=== PATIENT | female | born 1955 | race Caucasian/White ===

== ENCOUNTER 2017-04-30 12:40 | Emergency (ER) | payer OTHER ==
[2017-04-30] MEDS ORDERED: HYDROcodone/APAP 5-325MG 1 EACH TAB PO STA ×2 (13:04→15:35)
--- NOTE | 2017-04-30 13:16 | ED ---
General Adult HPI - General Chief complaint: Extremity Injury, Lower Stated complaint: Left Ankle Injury Time Seen by Provider: 04/30/17 12:51 Source: patient, RN notes reviewed Mode of arrival: wheelchair Limitations: no limitations - History of Present Illness Initial comments: Patient 61-year-old female who presents emergency room today with chief complaint of a fall from a ladder that occurred just prior to arrival. She does admit that she lost her balance she was approximate 4 feet here. States she landed on the grass. She states she hurt her left ankle. She denies any other injuries or complaints. Denies any head injury or loss consciousness. Patient denies any recent fever, chills, shortness of breath, chest pain, back pain, abdominal pain, nausea or vomiting, numbness or tingling, dysuria or hematuria, constipation or diarrhea, headaches or visual changes, or any other complaints. - Related Data Home Medications Medication Instructions Recorded Confirmed Aspirin 81 mg PO HS 04/30/17 04/30/17 Atorvastatin [Lipitor] 80 mg PO HS 04/30/17 04/30/17 Fenofibrate [Lofibra] 54 mg PO DAILY 04/30/17 04/30/17 Levothyroxine Sodium [Synthroid] 88 mcg PO DAILY 04/30/17 04/30/17 Lisinopril [Zestril] 10 mg PO DAILY 04/30/17 04/30/17 Multivitamins, Thera [Multivitamin 1 tab PO DAILY 04/30/17 04/30/17 (formulary)] Previous Rx's Medication Instructions Recorded Hydrocodone/Acetaminophen [Castalia 1 each PO Q6HR PRN #20 tab 04/30/17 5-325] Allergies Allergy/AdvReac Type Severity Reaction Status Date / Time No Known Allergies Allergy Verified 04/30/17 14:13 Review of Systems ROS Statement: Those systems with pertinent positive or pertinent negative responses have been documented in the HPI. ROS Other: All systems not noted in ROS Statement are negative. Past Medical History Past Medical History: Hyperlipidemia, Hypertension, Thyroid Disorder History of Any Multi-Drug Resistant Organisms: None Reported Past Surgical History: Orthopedic Surgery Additional Past Surgical History / Comment(s): carotid endarectomy Past Psychological History: No Psychological Hx Reported Smoking Status: Never smoker Past Alcohol Use History: None Reported Past Drug Use History: None Reported General Exam - General Exam Comments Initial Comments: General: The patient is awake and alert, in no distress, and does not appear acutely ill. Neck: The neck is supple, there is no tenderness or JVD. Cardiovascular: There is a regular rate and rhythm. No murmur, rub or gallop is appreciated. Respiratory: Lungs are clear to auscultation, respirations are non-labored, breath sounds are equal. No wheezes, stridor, rales, or rhonchi. Musculoskeletal: patient has moderate swelling to the medial aspect of the left ankle. She shows limited range of motion at the left ankle due to pain. She is able to move her toes. Move her knee and for the most. Sensations are intact pulses equal bilaterally.no tenderness on palpation to the left knee. Mild tenderness down to left foot. Toes have tenderness minimal to the lateral malleolus is increased to the medial malleolus. Neurological: A&O x 3. CN II-XII intact, There are no obvious motor or sensory deficits. Coordination appears grossly intact. Speech is normal. Skin: Skin is warm and dry and no rashes or lesions are noted. Psychiatric: Normal mood and affect. Limitations: no limitations Course Vital Signs 04/30/17 12:45 Temperature 97.3 F L Pulse Rate 64 Respiratory 18 Rate Blood Pressure 149/92 O2 Sat by Pulse 100 Oximetry Medical Decision Making - Medical Decision Making Patient's x-ray was reviewed and does show fracture of the left ankle. Neurovascularly intact. Case was discussed with on-call physician assistant chief nursing officer James Camargo who has reviewed the x-rays recommends a sugar tong splint with a posterior short leg splint. Patient given prescription for pain medication and crutches and advised nonweightbearing until follow-up with orthopedics Wednesday morning. Advised that if there is any problems over the weekend to return to the emergency room. Disposition Clinical Impression: Fracture of ankle, bimalleolar, left, closed Disposition: HOME SELF-CARE Condition: Good Instructions: Ankle Fracture (ED) Additional Instructions: Please see splinted in place until follow-up appointment with orthopedics in the next 2 days. Please continue to ice elevate the affected area discussed. Please use crutches with nonweightbearing. Please return to emergency room for any other concerns. Prescriptions: Hydrocodone/Acetaminophen [Castalia 5-325] 1 each PO Q6HR PRN #20 tab PRN Reason: Pain Referrals: Simon Ulrich MD [Primary Care Provider] - 1-2 days Time of Disposition: 15:35
--- NOTE | 2017-04-30 13:29 | XR ---
EXAMINATION TYPE: XR ankle limited LT DATE OF EXAM: 04/30/2017 COMPARISON: NONE HISTORY: Pain TECHNIQUE: 2 views of the left ankle are submitted for evaluation. FINDINGS: Completely displaced fractures of the medial and lateral malleolar. Posterior malleolar fra cture is difficult to exclude. A disruption of the ankle mortise noted with medial distal tibial disp lacement of 9.3 mm. Soft tissue edema and 17. IMPRESSION: 1. Fractures of the distal tibia and fibula as discussed with disruption of the ankle mortise.
[2017-04-30 16:10] VITALS: BP 144/68; PULSE 62; RESP 16; TEMP 98.3
== END 2017-04-30 16:23 | disposition home or self-care (01) ==
LOC: EC 12:40
DX: S82.842A Displaced bimalleolar fracture of left lower leg, initial encounter for closed fracture (principal); E78.5 Hyperlipidemia, unspecified; I10 Essential (primary) hypertension; E07.9 Disorder of thyroid, unspecified; Z98.890 Other specified postprocedural states; Z79.82 Long term (current) use of aspirin; Z79.899 Other long term (current) drug therapy; W11.XXXA Fall on and from ladder, initial encounter
CPT/HCPCS: 29515; 99283

== ENCOUNTER → 2018-03-24 | Outpatient (CLI) | payer OTHER ==
--- NOTE | 2018-03-24 16:11 | BD ---
EXAMINATION TYPE: Axial Bone Density DATE OF EXAM: 03/24/2018 COMPARISON: NONE CLINICAL HISTORY: Postmenopausal female. Osteoporosis screening. Height: 67 Weight: 246.3 FRAX RISK QUESTIONS: Alcohol (3 or more units per day): no Family History (Parent hip fracture): no Glucocorticoids (More than 3mos): no (Ex: prednisone, prednisolone, methylprednisolone, dexamethasone, and hydrocortisone). History of Fracture in Adulthood: yes Secondary Osteoporosis: 1. Type 1 Diabetes: no 2. Hyperthyroidism: no 3. Menopause before 45: no 4. Malnutrition: no 5. Chronic liver disease: no RISK FACTORS HISTORY OF: Family History of Osteoporosis: no Active: yes Diet low in dairy products/other sources of calcium: no Postmenopausal woman: 2006 Lost more than 2 inches in height since high school: no Frequent falls: no MEDICATIONS: lisinopril, fenofibrate, crestor, aspirin, d3, vitamins, biotene Thyroid Medications: synthroid How Lon years Additional History: EXAM MEASUREMENTS: Bone mineral densitometry was performed using the [employer] System. Bone mineral density as measured about the Lumbar spine is: ----- L1-L4(G/cm2): 1.373 T Score Values are as follows: ----- L2: 1.1 ----- L3: 1.5 ----- L4: 2.0 ----- L1-L4: 1.6 Bone mineral density has: increased 0.9 % since study of: 11.15.2012 Bone mineral density about the R hip (g/cm2): 0.962 Bone mineral density about the L hip (g/cm2): 0.970 T Score values are as follows: -----R Neck: -0.5 -----L Neck: -0.5 -----R Total: 0.4 -----L Total: 0.6 Bone mineral density has: decreased -3.8 % since study of: 11.15.2012 IMPRESSION: Normal (Values between +1 and -1 indicate normal bone mass). Consider repeating this study in 5 year s or sooner if there is some new clinical indication. NOTE: T-SCORE=SD OF THE YOUNG ADULT MEAN.
== END | disposition home or self-care (01) ==
LOC: RADBDWWP 14:16
PROVIDERS: ATTEND Specialist
DX: Z13.820 Encounter for screening for osteoporosis (principal)
CPT/HCPCS: 77080

== ENCOUNTER → 2018-05-18 | Outpatient (CLI) | payer OTHER ==
--- NOTE | 2018-05-19 12:48 | MM ---
Reason for exam: screening (asymptomatic). Last mammogram was performed 1 year ago. History: Patient is postmenopausal and has history of other cancer at age 45. Physical Findings: A clinical breast exam by your physician is recommended on an annual basis and results should be correlated with mammographic findings. MG 3D Screening Mammo W/Cad Bilateral CC and MLO view(s) were taken. Prior study comparison: May 17, 2017, bilateral MG screening mammo w CAD. April 15, 2016, bilateral MG 3d screening mammo w/cad. There are scattered fibroglandular densities. There is no discrete abnormality. No significant changes when compared with prior studies. ASSESSMENT: Negative, BI-RAD 1 RECOMMENDATION: Routine screening mammogram of both breasts in 1 year.
== END | disposition home or self-care (01) ==
LOC: RADMAMWWP 13:14
PROVIDERS: ATTEND Family Medicine
DX: Z12.31 Encounter for screening mammogram for malignant neoplasm of breast (principal)
CPT/HCPCS: 77063; 77067

== ENCOUNTER → 2018-09-21 | Outpatient (CLI) | payer OTHER ==
--- NOTE | 2018-09-21 17:01 | MR ---
EXAMINATION TYPE: MR iac wo/w con DATE OF EXAM: 09/21/2018 COMPARISON: NONE HISTORY: 63-year-old female Vertigo / Acoustic nerve disorder TECHNIQUE: Multiplanar, multisequence images of the brain and brainstem were acquired before and aft er administration of 11 mL IV Gadavist. Diffusion weighted imaging was performed. Additional coned- down sequences through the internal auditory canals and posterior cranial fossa before and after IV c ontrast administration. FINDINGS: Diffusion weighted images demonstrate no evidence of an acute ischemic lesion in the brain. T2/FLAIR weighted sequences show mild to moderate scattered burden of bright white matter change with in the subcortical and deep white matter regions. Midline structures demonstrate partially empty sella but otherwise normal morphology. The craniocerv ical junction is normal. There is mild cerebral atrophy. The ventricles are of normal caliber. There is no evidence of an acute intracranial hemorrhage, infarct, mass, mass-effect or an extra-axia l fluid collection. There is no cerebellopontine angle mass. The internal auditory canals are symmetric. Brainstem and skull base abnormalities are not seen. Post contrast images demonstrate no evidence of pathologic enhancement in the posterior cranial deysi a or the internal auditory canals. There is no abnormal enhancement of the labyrinths. There is fluid within the right mastoid air cells. Mild mucosal thickening along the floors of the ma xillary sinuses. Globes appear intact. IMPRESSION: 1. Mild cerebral atrophy and mild to moderate scattered burden of T2 bright white matter change likel y representing chronic small vessel ischemic disease. 2. No acute intracranial abnormality seen. 3. Fluid in the right mastoid air cells may reflect mastoiditis. Otherwise, no additional specific ab normality on acoustic MRI.
== END | disposition home or self-care (01) ==
LOC: RADMRIMAIN 09:07
PROVIDERS: ATTEND Otolaryngology
DX: G31.9 Degenerative disease of nervous system, unspecified (principal); R90.89 Other abnormal findings on diagnostic imaging of central nervous system; H93.3X3 Disorders of bilateral acoustic nerves
CPT/HCPCS: 70553; A9585

== ENCOUNTER → 2019-06-05 | Outpatient (CLI) | payer OTHER ==
--- NOTE | 2019-06-05 14:03 | CT ---
EXAMINATION TYPE: CT chest wo con DATE OF EXAM: 06/05/2019 COMPARISON: None HISTORY: 64-year-old female Solitary lung nodule. Abnormal chest x-ray. TECHNIQUE: Contiguous axial scanning of the chest without IV contrast. Coronal and sagittal reconstru ctions performed. CT DLP: 701 mGycm Automated exposure control for dose reduction was used. FINDINGS: The patient's abnormal chest x-ray is not available for review. Heart normal size without pericardial effusion. Three-vessel coronary artery calcifications are prese nt. Mild ectasia ascending aorta 3.7 cm within the chart vessel branching anatomy. Scattered nonenlarged mediastinal lymph nodes. No thoracic lymph adenopathy by CT size criteria. 4 mm posterior left upper lung pulmonary nodule, axial image 20. Minimal groundglass nodularity right upper lobe, axial image 20. 4 mm subpleural pulmonary nodule peripheral left base, axial image 52. Some septal lines and interstitial thickening within the lower lungs. Additional strandy scarring or atelectasis right midlung. No consolidation or pleural effusion. Tiny hiatal hernia. Hilar splenule. Bones: Moderate degenerative disc disease lower thoracic spine. IMPRESSION: 1. MILD INTERSTITIAL FIBROSIS IN THE LOWER LUNGS. 2. COUPLE 4 MM PULMONARY NODULES. 6-12 MONTH FOLLOW-UP EXAM RECOMMENDED TO REASSESS. 3. TINY, NONSPECIFIC INFECTIOUS/INFLAMMATORY GROUNDGLASS FOCUS IN THE RIGHT UPPER LOBE.
== END | disposition home or self-care (01) ==
LOC: RADCTMAIN 13:29
PROVIDERS: ATTEND Family Medicine
DX: J84.10 Pulmonary fibrosis, unspecified (principal); R91.8 Other nonspecific abnormal finding of lung field
CPT/HCPCS: 71250

== ENCOUNTER → 2019-07-31 | Outpatient (CLI) | payer OTHER ==
--- NOTE | 2019-07-31 11:51 | MM ---
Reason for exam: screening (asymptomatic). Last mammogram was performed 1 year and 2 months ago. History: Patient is postmenopausal and has history of other cancer at age 45. Physical Findings: A clinical breast exam by your physician is recommended on an annual basis and results should be correlated with mammographic findings. MG 3D Screening Mammo W/Cad Bilateral CC and MLO view(s) were taken. Prior study comparison: May 18, 2018, bilateral MG 3d screening mammo w/cad. May 17, 2017, bilateral MG screening mammo w CAD. There are scattered fibroglandular densities. No suspicious abnormality. No significant changes when compared with prior studies. ASSESSMENT: Negative, BI-RAD 1 RECOMMENDATION: Routine screening mammogram of both breasts in 1 year.
== END | disposition home or self-care (01) ==
LOC: RADMAMWWP 10:35
PROVIDERS: ATTEND Specialist
DX: Z12.31 Encounter for screening mammogram for malignant neoplasm of breast (principal)
CPT/HCPCS: 77063; 77067

== ENCOUNTER → 2019-10-26 | Outpatient (CLI) | payer OTHER ==
--- NOTE | 2019-10-26 09:35 | CT ---
EXAMINATION TYPE: CT chest wo con DATE OF EXAM: 10/26/2019 COMPARISON: 06/05/2019 HISTORY: 64-year-old female with solitary pulmonary nodule TECHNIQUE: Contiguous axial scanning of the chest without IV contrast. Coronal and sagittal reconstru ctions performed. CT DLP: 694 mGycm Automated exposure control for dose reduction was used. FINDINGS: Heart normal size without pericardial effusion. Scattered three-vessel coronary artery calcifications are present. Mild ectasia ascending aorta 3.6 cm with conventional arch vessel branching anatomy. Scattered nonenlarged mediastinal lymph nodes. No thoracic lymph adenopathy by CT size criteria. 4 mm posterior left upper lung pulmonary nodule, axial image 17, unchanged. Minimal groundglass nodularity right upper lobe, previously seen has resolved. 4 mm subpleural pulmonary nodule peripheral left base, axial image 48, unchanged. In retrospect, an 8 mm subpleural pulmonary nodule at the medial right midlung adjacent to the azygos vein, axial image 20, is unchanged. No new pulmonary nodules or masses. Some septal lines and interstitial thickening within the lower lungs. Additional strandy scarring or atelectasis right midlung. No consolidation or pleural effusion. Tiny hiatal hernia. Hilar splenule. Bones: Moderate degenerative disc disease mid to lower thoracic spine. IMPRESSION: 1. AN 8 MM SUBPLEURAL MEDIAL RIGHT MIDLUNG PULMONARY NODULE IS UNCHANGED IN RETROSPECT. ADDITIONAL 6- 12 MONTH FOLLOW-UP RECOMMENDED. 2. THE OTHER TWO 4 MM PULMONARY NODULES ARE ALSO UNCHANGED SUGGESTING A BENIGN ETIOLOGY. 3. MILD INTERSTITIAL FIBROSIS REDEMONSTRATED IN THE LOWER LUNGS. TINY HIATAL HERNIA.
== END | disposition home or self-care (01) ==
LOC: RADCTMAIN 08:44
PROVIDERS: ATTEND Family Medicine
DX: R91.1 Solitary pulmonary nodule (principal); R91.8 Other nonspecific abnormal finding of lung field; J84.10 Pulmonary fibrosis, unspecified
CPT/HCPCS: 71250

== ENCOUNTER → 2020-07-16 | Outpatient (CLI) | payer MEDICARE ==
--- NOTE | 2020-07-16 14:48 | BD ---
EXAMINATION TYPE: Axial Bone Density DATE OF EXAM: 07/16/2020 COMPARISON: 03.24.2018 CLINICAL HISTORY: 65 YR OLD FEMALE.....ICD-10 CODE: Z13.820 OSTEOPOROSIS SCREENING Height: 66.2 Weight: 253 FRAX RISK QUESTIONS: History of Fracture in Adulthood: YES RISK FACTORS HISTORY OF: HX OF ANKLE FX WITH SURGICAL REPAIR AT AGE 62 Active: YES Postmenopausal woman: YES AT AGE 52 YRS OLD Hyperparathyroidism: NO Adrenal Insufficiency: NO MEDICATIONS: Thyroid Medications: YES, FOR ABOUT 20+ YRS, SYNTHROID Additional Medications: BP MEDS, STATIN FOR CHOLESTEROL, CALCIUM AND VIT D IN MULTIVITAMIN Additional History: HYPERTENSION, CAROTID INSUFFICIENCY, CHOLESTEROL EXAM MEASUREMENTS: Bone mineral densitometry was performed using the [employer] System. Bone mineral density as measured about the Lumbar spine is: ----- L1-L4(G/cm2): 1.407 T Score Values are as follows: ----- L1: 1.3 ----- L2: 1.1 ----- L3: 1.8 ----- L4: 3.0 ----- L1-L4: 1.9 Bone mineral density has: Increased 3.9% since study of: 03.24.2018 Bone mineral density about the R hip (g/cm2): 1.028 Bone mineral density about the L hip (g/cm2): 1.090 T Score values are as follows: -----R Neck: -0.4 -----L Neck: -0.3 -----R Total: 0.2 -----L Total: 0.7 Bone mineral density has: Decreased -0.9% since study of: 03.24.2018 FRAX%s: THERE IS A 10.5% CHANCE FOR A MAJOR OSTEOPOROTIC FX AND A 0.4% FOR HIP.....PROBABILITY FOR FX IN 10 YRS TIME IMPRESSION: Normal (Values between +1 and -1 indicate normal bone mass). Consider repeating this study in 5 year s or sooner if there is some new clinical indication. NOTE: T-SCORE=SD OF THE YOUNG ADULT MEAN.
== END | disposition home or self-care (01) ==
LOC: RADMAMWWP 09:46
PROVIDERS: ATTEND Specialist
DX: Z13.820 Encounter for screening for osteoporosis (principal)
CPT/HCPCS: 77080

== ENCOUNTER → 2020-08-08 | Outpatient (CLI) | payer MEDICARE ==
--- NOTE | 2020-08-09 14:51 | MM ---
Reason for exam: screening (asymptomatic). Last mammogram was performed 1 year ago. History: Patient is postmenopausal and has history of other cancer at age 45. Took hormonal contraceptives for 10 years. Physical Findings: A clinical breast exam by your physician is recommended on an annual basis and results should be correlated with mammographic findings. MG 3D Screening Mammo W/Cad Bilateral CC and MLO view(s) were taken. Prior study comparison: July 31, 2019, bilateral MG 3d screening mammo w/cad. May 18, 2018, bilateral MG 3d screening mammo w/cad. There are scattered fibroglandular densities. There is no discrete abnormality. ASSESSMENT: Negative, BI-RAD 1 RECOMMENDATION: Routine screening mammogram of both breasts in 1 year.
== END ==
LOC: RADMAMWWP 16:29
PROVIDERS: ATTEND Specialist
DX: Z12.31 Encounter for screening mammogram for malignant neoplasm of breast (principal); Z78.0 Asymptomatic menopausal state
CPT/HCPCS: 77063; 77067

== ENCOUNTER → 2022-05-06 | Outpatient (CLI) | payer MEDICARE ==
--- NOTE | 2022-05-06 07:45 | CT ---
EXAMINATION TYPE: CT chest wo con DATE OF EXAM: 05/06/2022 COMPARISON: Prior chest CT October 26, 2019 and older study June 05, 2019 HISTORY: Abnormal findings of Lung field CT DLP: 502.2 mGycm. Automated Exposure Control for Dose Reduction was Utilized. TECHNIQUE: CT scan of the thorax is performed without IV contrast. FINDINGS: LUNGS: Stable 4 mm posterior superior left upper lobe nodule axial image 17. [id number] periph eral reticulation and fibrotic changes in the lung bases redemonstrated. Stable 8 x 5 mm nodule media l right mid lung axial image 20 from prior studies. There is new 5 x 4 mm right middle lobe nodule ax ial image 37. No new greater than 5 mm pulmonary nodules. There is no pleural effusion or pneumothora x seen. The tracheobronchial tree is patent. MEDIASTINUM: Lack of IV contrast is noted to limit evaluation for mediastinal and especially hilar ad enopathy. There are no definitive new greater than 1 cm mediastinal lymph nodes. No cardiomegaly or pericardial effusion is seen. Somewhat small size thyroid gland is partially imaged. Prominent pulmo nary arteries suggesting underlying pulmonary hypertension redemonstrated. Severe three-vessel booker ry artery calcification redemonstrated. Ectatic ascending aorta measures up to 3.7 cm in diameter. OTHER: No additional significant abnormality is seen. IMPRESSION: Small nodules are stable. New 5 x 4 mm right middle lobe nodule. Consider follow-up CT in one year time to reassess. Stable scattered fibrotic changes greatest in the lung bases. Severe thre e-vessel coronary artery disease is noted. Correlate with additional cardiac risk factors advised.
== END | disposition home or self-care (01) ==
LOC: RADCTMAIN 06:54
PROVIDERS: ATTEND Family Medicine
DX: I25.10 Atherosclerotic heart disease of native coronary artery without angina pectoris (principal); R91.8 Other nonspecific abnormal finding of lung field
CPT/HCPCS: 71250

== ENCOUNTER → 2023-10-18 | Outpatient (CLI) | payer MEDICARE ==
--- NOTE | 2023-10-18 12:09 | CT ---
EXAMINATION TYPE: CT chest wo con DATE OF EXAM: 10/18/2023 COMPARISON: 05/06/2022 HISTORY: solitary pulmonary nodule c/o cough CT DLP: 559.90 mGycm, Automated exposure control for dose reduction was used. CONTRAST: Performed injected with 0 mL of . TECHNIQUE: Axial images were obtained at 5 mm thick sections. Reconstructed images are reviewed on [employer] computer in the coronal plane. FINDINGS: Portion of the thyroid visualized is normal. There is a 0.7 cm pleural-based density along the anterolateral right upper lung field. Series 4 imag e 16. This is new. There is a 0.4 cm density within the superior segment left lower lobe. Series 4 image 18. This appear s stable from comparison. There is a 0.6 cm nodular density within the right middle lobe. Series 4 image 37. This appears stabl e. No enlarged mediastinal or hilar adenopathy is evident. Scattered shotty lymphadenopathy is present . The ascending aorta diameter at the level of the main pulmonary artery is 3.9 cm. The main pulmona ry artery diameter at the bifurcation is 2.5 cm. Coronary artery calcification is present. Limited CT sections are obtained through the upper abdomen. Abdomen is essentially unremarkable. IMPRESSION: 1. New pleural-based density right upper lung field. 2. Previous nodules appear stable. 3. Recommend follow-up CT chest 6 months.
== END | disposition home or self-care (01) ==
LOC: RADCTMAIN 07:43
PROVIDERS: ATTEND Family Medicine
DX: J98.4 Other disorders of lung (principal); R91.1 Solitary pulmonary nodule
CPT/HCPCS: 71250

== ENCOUNTER → 2024-01-27 | Outpatient (CLI) | payer MEDICARE ==
--- NOTE | 2024-02-01 10:09 | MM ---
Reason for Exam: Screening (asymptomatic). Last mammogram was performed 3 year(s) and 5 month(s) ago. Patient History: Menarche at age 12. First Full-Term at age 20. Postmenopausal. Other cancer, age 45. Patient used Hormonal Contraceptives for 10 years. Risk Values: Jenifer 5 year model risk: 1.5%. NCI Lifetime model risk: 5.0%. Prior Study Comparison: 05/18/2018 Bilateral Screening Mammogram, [facility]. 07/31/2019 Bilateral Screening Mammogram, [facility]. 08/08/2020 Bilateral Screening Mammogram, [facility]. Tissue Density: There are scattered areas of fibroglandular density. Findings: Analyzed By CAD. There is no suspicious group of microcalcifications or new suspicious mass in either breast. Benign-appearing calcifications. Overall Assessment: Benign, BI-RAD 2 Management: Screening Mammogram of both breasts in 1 year. . Patient should continue monthly self-breast exams. A clinical breast exam by your physician is recommended on an annual basis. This exam should not preclude additional follow-up of suspicious palpable abnormalities. Note on Jenifer scores and lifetime risk: 1. A Jenifer score greater than 3% is considered moderate risk. If this is the case, consider specialist referral to assess eligibility for a risk reducing agent. 2. If overall lifetime risk for the development of breast cancer is 20% or higher, the patient may qualify for future screening with alternating mammogram and breast MRI. Electronically signed and approved by: Simon Jaime M.D. Radiologis
== END | disposition home or self-care (01) ==
LOC: RADMAMWWP 09:11
PROVIDERS: ATTEND Specialist
DX: Z12.31 Encounter for screening mammogram for malignant neoplasm of breast
CPT/HCPCS: 77063; 77067

== ENCOUNTER → 2024-05-23 | Outpatient (CLI) | payer MEDICARE | END | disposition home or self-care (01) | LOC: RADCTMAIN 09:15 | PROVIDERS: ATTEND Family Medicine | DX: Z53.9 Procedure and treatment not carried out, unspecified reason (principal) ==

== ENCOUNTER → 2024-05-29 | Outpatient (CLI) | payer MEDICARE ==
--- NOTE | 2024-05-29 10:34 | CT ---
EXAMINATION TYPE: CT chest wo con CT DLP: 567.40 mGycm, Automated exposure control for dose reduction was used. DATE OF EXAM: 05/29/2024 10:21 AM COMPARISON: Multiple CT chest with most recent 10/18/2023 CLINICAL INDICATION:Female, 69 years old with history of R91.8 abnormal findings lung field; PHH, Abn ormal findings of lung field TECHNIQUE: Multiple axial images were obtained through the chest without IV contrast. Lack of IV or o ral contrast limits evaluation of solid and hollow organ viscera. . Coronal and sagittal reformats re viewed. FINDINGS: LUNGS/ PLEURA: Mild to moderate peripheral reticulation and fibrotic changes within the lung bases re demonstrated. Stable 4 mm pulmonary nodule within the superior segment of the left lower lobe (series 4, image 17). Stable 5 mm right upper lobe pleural based nodule (series 4, image 17). Stable medial right lower lobe 7 mm pulmonary nodule (series 4, image 21). Stable right middle lobe 5 mm pulmonary nodule (series 4, image 39). No new or enlarging pulmonary nodules. AIRWAY: Patent and unremarkable.. HEART: Size within normal limits.No pericardial effusion. Mild coronary arterial calcifications. MEDIASTINUM: No gross evidence of adenopathy. VASCULATURE: No aortic aneurysm. Mild atherosclerotic calcification of the aorta and its branches. MUSCULOSKELETAL: No acute osseous abnormalities. Mild multilevel degenerative disc disease. SOFT TISSUES/LYMPH NODES: Unremarkable. LOWER NECK: Small-sized thyroid gland redemonstrated. UPPER ABDOMEN: No significant findings. IMPRESSION: 1. Few stable pulmonary nodules from prior exam. No new or enlarging pulmonary nodules. Consider foll ow-up CT chest in one year to assess for stability. 2. Stable scattered fibrotic changes with greatest in the lung bases. [facility], , 05/29/2024 10:32 AM
== END | disposition home or self-care (01) ==
LOC: RADCTMAIN 09:53
PROVIDERS: ATTEND Family Medicine
DX: R91.8 Other nonspecific abnormal finding of lung field (principal); J84.10 Pulmonary fibrosis, unspecified
CPT/HCPCS: 71250